=== PATIENT | female | born 1970 | race African-American/Black ===

== ENCOUNTER → 2022-10-27 11:09 | Outpatient (BNVA) | payer OTHER, SELFPAY | PROVIDERS: PCP Internal Medicine; Visit Provider Internal Medicine Rheumatology | DX: Z13.89 Encounter for screening for other disorder (principal) ==

== ENCOUNTER 2022-10-27 12:24 | Outpatient (REF) | payer OTHER, SELFPAY ==
[2022-10-27 13:53] LABS: C Reactive Protein 0.82 mg/dL (< or = 0.50)
[2022-10-27 15:28] LABS: Erythrocyte Sedimentation Rate 16 MM/HR (0-20)
[2022-10-29 14:42] LABS: Cyclic Citrullinated Peptide <16 UNITS
== END 2022-10-27 12:25 | disposition home or self-care (01) ==
LOC: HO.10HDL 12:24
PROVIDERS: Visit Provider Internal Medicine Rheumatology
DX: M25.561 Pain in right knee (principal); M25.562 Pain in left knee
CPT/HCPCS: 36415; 85652; 86140; 86200